=== PATIENT | female | born 1995 | race Caucasian/White ===

== ENCOUNTER → 2020-09-12 | Emergency (ER) | payer OTHER ==
[~2020-09-12] VITALS: Ht 157.5 cm; Wt 81.6 kg
[~2020-09-12] MED LIST: CEPHALEXIN500 MG PO; FERRO-PLEX PO; KEFLEX500 MG PO; PRENATE ADVANCE PO; PYRIDIUM DS200 MG PO
== END | disposition home or self-care (01) ==
LOC: ER 01:18
DX: N39.0 Urinary tract infection, site not specified (principal)